=== PATIENT | female | born 1985 | race Caucasian/White ===

== ENCOUNTER 2017-09-07 11:56 | Emergency (ER) | payer OTHER ==
[~2017-09-07 11:56] MED LIST: PREN1CAP7 PO
--- NOTE | 2017-09-07 12:34 | PD ---
HPI Chief Complaint Contractions Date Seen: September 07, 2017 Travel History International Travel<30 Days: No Contact w/Intl Traveler<30Days: No Known Affected Area: No History of Present Illness HPI The patient is a pleasant 31 year old at 35/6 weeks gestation who presents to OB triage with complaints of contractions since yesterday. She states she started to feel contractions around yesterday afternoon. 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 She denies leakage or gush of fluid. Endorses +FM. She otherwise does not report symptoms. Denies fevers, chest pain, dyspnea, abnormal vaginal discharge or bleeding. Para: 2 : 3 History Past Medical History Narrative Medical Denies Obstetric History Obstetric History Two prior vaginal deliveries Patient reports one prior vaginal delivery at 35 weeks gestation and one around 37 weeks Past Surgical History Surgical History: No Previous Surgery Family History Family History: Negative Social History Alcohol Use: No Tobacco Use: No Substance Abuse: No Allergies-Medications (Allergen,Severity, Reaction): Coded Allergies: Penicillins (Verified Allergy, Unknown, 05/24/17) Home Meds Active Scripts W/O Vit A W/ Fe Fumar (Citranatal [place]) 27-1-260 Mg Cap, 1 CAP PO DAILY for Nutritional Supplement, #30 CAP 11 Refills Prov:Francie Overton [facility] 04/19/17 W/O Vit A W/ Fe Fumar (Citranatal [place]) 27-1-260 Mg Cap Prov:Trudi Barrera CNM [facility] 04/19/17 Review of Systems Except as stated in HPI: all other systems reviewed are Neg Physical Exam Narrative GENERAL: Well-nourished, well-developed patient. SKIN: Warm and dry. HEAD: Normocephalic and atraumatic. EYES: No scleral icterus. No injection or drainage. ENT: No nasal drainage noted. Mucous membranes pink. Airway patent. NECK: Supple, trachea midline. No JVD. CARDIOVASCULAR: Regular rate and rhythm without murmurs, gallops, or rubs. RESPIRATORY: Breath sounds equal bilaterally. No accessory muscle use. ABDOMEN/GI: Abdomen soft, non-tender, bowel sounds present, no rebound, no guarding Gravid to 36 weeks size GENITOURINARY: External Genitalia: intact and normal in appearance Cervix: [-] Dilatation: 2cm Effacement: 50% Station: -3 Presentation: [-] Membranes: [intact or ruptured] Uterine Contractions: Irregular and sporadic contractions FHT's: Category: I Baseline: 150s Reactive: +accels Variability: moderate Decels: none noted EXTREMITIES: No cyanosis or edema. BACK: Nontender without obvious deformity. No CVA tenderness. NEUROLOGICAL: Awake and alert. Motor and sensory grossly within normal limits. Normal speech. Data Data Vital Signs Reviewed: Yes [facility] Medical Record Reviewed: Yes Plan 31 year old at 35/6 weeks gestation being evaluated due to contractions for the past day. 1. IUP - Category I tracing - Irregular and sporadic contractions on tocometer - Cervix: 2/50%/-3 - Labor precautions reviewed with the patient and patient instructed as to what symptoms would prompt a return visit to the ED for reevaluation - Instructed continued routine follow up with her OB provider sdw Dr. Silver and Dr. Max Diagnosis Diagnosis: Primary Impression: Pablo De Los Santos' contraction Additional Impression: 35 weeks gestation of Disposition: DISCHARGE HOME Condition: Stable Joe Tinajero MD R2 September 07, 2017 12:34
== END 2017-09-07 17:31 | disposition home or self-care (01) ==
LOC: HOBED 11:56
DX: O47.03 False labor before 37 completed weeks of gestation, third trimester (principal); Z3A.35 35 weeks gestation of pregnancy; Z88.0 Allergy status to penicillin
CPT/HCPCS: 59025

== ENCOUNTER 2017-09-26 11:38 | Inpatient (IN) | payer OTHER ==
[~2017-09-26] VITALS: Ht 165.1 cm; Wt 70.0 kg
[2017-09-26] MEDS ORDERED: LACTATED RINGER'S 1000 ML INJ 1,000 ML IV PRN (11:53)
[2017-09-26] MEDS ORDERED: LACTATED RINGER'S 1000 ML INJ 1,000 ML IV SCH (11:53)
[2017-09-26] MEDS ORDERED: SODIUM CHLORID 0.9% 500 ML INJ 500 ML IV PRN (12:00)
[2017-09-26] MEDS ORDERED: LIDOCAINE HCL 1% 50 ML VIAL INFIL PRN (12:00)
[2017-09-26] MEDS ORDERED: LIDOCAINE HCL 1% 50 ML VIAL I-DERMAL PRN (12:00)
[2017-09-26] MEDS ORDERED: MINERAL OIL 10 ML VIAL TOPICAL PRN (12:00)
[2017-09-26] MEDS ORDERED: OXYTOCIN 30 UNITS-500ML PREMIX 500 ML IV ONE (12:00)
[2017-09-26] MEDS ORDERED: CITRIC ACID-SODIUM CITRATE LIQ 30 ML UDC PO SCH (12:00)
--- NOTE | 2017-09-26 12:00 | PD ---
HPI Chief Complaint Contractions Date Seen: September 26, 2017 Travel History International Travel<30 Days: No Contact w/Intl Traveler<30Days: No Known Affected Area: No History of Present Illness HPI The patient is a 31-year-old at 38/4 weeks gestation who presents to OB triage due to painful contractions. Denies any leakage of fluid. Endorses positive movements. [facility] She reports pain due to her contractions and states she is desiring an epidural. The patient is GBS negative. Para: 2 : 3 History Past Medical History Narrative Medical Denies Obstetric History Obstetric History Two prior vaginal deliveries Patient reports one prior vaginal delivery at 35 weeks gestation and one around 37 weeks Past Surgical History Surgical History: No Previous Surgery Family History Family History: Negative Social History Alcohol Use: No Tobacco Use: No Substance Abuse: No Allergies-Medications (Allergen,Severity, Reaction): Coded Allergies: Penicillins (Verified Allergy, Unknown, 05/24/17) Home Meds Active Scripts W/O Vit A W/ Fe Fumar (Citranatal [place]) 27-1-260 Mg Cap, 1 CAP PO DAILY for Nutritional Supplement, #30 CAP 11 Refills Prov:Francie Overton [facility] 04/19/17 W/O Vit A W/ Fe Fumar (Citranatal [place]) 27-1-260 Mg Cap Prov:Trudi Barrera CNM [facility] 04/19/17 Review of Systems Except as stated in HPI: all other systems reviewed are Neg Physical Exam Narrative GENERAL: Well-nourished, well-developed patient. SKIN: Warm and dry. HEAD: Normocephalic and atraumatic. EYES: No scleral icterus. No injection or drainage. ENT: No nasal drainage noted. Mucous membranes pink. Airway patent. NECK: Supple, trachea midline. No JVD. CARDIOVASCULAR: Regular rate and rhythm without murmurs, gallops, or rubs. RESPIRATORY: Breath sounds equal bilaterally. No accessory muscle use. BREASTS: Bilateral exam showed no masses , no retractions, no nipple discharge. ABDOMEN/GI: Abdomen soft, non-tender, bowel sounds present, no rebound, no guarding Gravid to 38 weeks size GENITOURINARY: External Genitalia: intact and normal in appearance Cervix: [-] Dilatation: 8cm Effacement: 100% Station: 0 Presentation: vertex Membranes: bulging Uterine Contractions: q2-3 minutes FHT's: Category: I Baseline: 140s Reactive: +accels Variability: moderate Decels: none noted EXTREMITIES: No cyanosis or edema. BACK: Nontender without obvious deformity. No CVA tenderness. NEUROLOGICAL: Awake and alert. Motor and sensory grossly within normal limits. Normal speech. Data Data Vital Signs Reviewed: Yes Orders Orders Ob (2e) Additional Admit Info (09/26/17 11:50) Admit To Inpatient (09/26/17 ) Code Status (09/26/17 11:53) Vital Signs (Adult) .Per protocol (09/26/17 11:53) Activity Oob Ad Светлана (09/26/17 11:53) Heart (09/26/17 11:53) Amnioinfusion (09/26/17 11:53) Urinary Catheter Management .ONCE (09/26/17 11:53) Lactated Ringer's 1000 Ml Inj (Lr 1000 M (09/26/17 11:53) Lactated Ringer's 1000 Ml Inj (Lr 1000 M (09/26/17 11:53) Sodium Chlorid 0.9% 500 Ml Inj (Ns 500 M (09/26/17 12:00) Sodium Chlor 0.9% 1000 Ml Inj (Ns 1000 M (09/26/17 12:13) Lidocaine 1% Inj (50 Ml) (Xylocaine 1% I (09/26/17 12:00) Citric Acid-Sodium Citrate Liq (Bicitra (09/26/17 12:00) Fentanyl Inj (Fentanyl Inj) (09/26/17 12:00) Fentanyl Inj (Fentanyl Inj) (09/26/17 12:00) Complete Blood Count With Diff (09/26/17 11:53) Hold Clot (09/26/17 11:53) Abo/Rh Blood Type (09/26/17 11:53) Urinalysis - C+S If Indicated (09/26/17 11:53) Ob/Psych Drug Screen, Urine (09/26/17 11:53) Resp Oxygen Non Rebreathe Mask (09/26/17 ) ^ Epidural / Intrathecal Infus (09/26/17 11:53) Oxytocin 30 Units-500ml Premix (Pitocin (09/26/17 12:00) Lidocaine 1% Inj (50 Ml) (Xylocaine 1% I (09/26/17 12:00) Light Mineral Oil (Muri-Lube Oil) (09/26/17 12:00) Inpatient Certification (09/26/17 ) Group B Strep: Negative MDM Medical Record Reviewed: Yes Plan 31 year old at 38/4 weeks gestation being admitted to L&D in active labor. 1. IUP - Category I tracing - Cervix 8/100/0, vertex - Contractions q2-3 minutes on tocometer - GBS negative - Patient desiring epidural - Continue expectant management dw Joe López MD R2 September 26, 2017 12:00
--- NOTE | 2017-09-26 12:07 | HHI.HP ---
History & Physical H&P HPI Chief Complaint Contractions Date Seen: September 26, 2017 Travel History International Travel<30 Days: No Contact w/Intl Traveler<30Days: No Known Affected Area: No History of Present Illness HPI The patient is a 31-year-old at 38/4 weeks gestation who presents to OB triage due to painful contractions. Denies any leakage of fluid. Endorses positive movements. [facility] She reports pain due to her contractions and states she is desiring an epidural. The patient is GBS negative. Para: 2 : 3 History Past Medical History Narrative Medical Denies Obstetric History Obstetric History Two prior vaginal deliveries Patient reports one prior vaginal delivery at 35 weeks gestation and one around 37 weeks Past Surgical History Surgical History: No Previous Surgery Family History Family History: Negative Social History Alcohol Use: No Tobacco Use: No Substance Abuse: No Allergies-Medications (Allergen,Severity, Reaction): Coded Allergies: Penicillins (Verified Allergy, Unknown, 05/24/17) Home Meds Active Scripts W/O Vit A W/ Fe Fumar (Citranatal [place]) 27-1-260 Mg Cap, 1 CAP PO DAILY for Nutritional Supplement, #30 CAP 11 Refills Prov:Francie Overton [facility] 04/19/17 W/O Vit A W/ Fe Fumar (Citranatal [place]) 27-1-260 Mg Cap Prov:Trudi Barrera CNM [facility] 04/19/17 Review of Systems Except as stated in HPI: all other systems reviewed are Neg Physical Exam Narrative GENERAL: Well-nourished, well-developed patient. SKIN: Warm and dry. HEAD: Normocephalic and atraumatic. EYES: No scleral icterus. No injection or drainage. ENT: No nasal drainage noted. Mucous membranes pink. Airway patent. NECK: Supple, trachea midline. No JVD. CARDIOVASCULAR: Regular rate and rhythm without murmurs, gallops, or rubs. RESPIRATORY: Breath sounds equal bilaterally. No accessory muscle use. BREASTS: Bilateral exam showed no masses , no retractions, no nipple discharge. ABDOMEN/GI: Abdomen soft, non-tender, bowel sounds present, no rebound, no guarding Gravid to 38 weeks size GENITOURINARY: External Genitalia: intact and normal in appearance Cervix: [-] Dilatation: 8cm Effacement: 100% Station: 0 Presentation: vertex Membranes: bulging Uterine Contractions: q2-3 minutes FHT's: Category: I Baseline: 140s Reactive: +accels Variability: moderate Decels: none noted EXTREMITIES: No cyanosis or edema. BACK: Nontender without obvious deformity. No CVA tenderness. NEUROLOGICAL: Awake and alert. Motor and sensory grossly within normal limits. Normal speech. Data Data Vital Signs Reviewed: Yes Orders Orders Ob (2e) Additional Admit Info (09/26/17 11:50) Admit To Inpatient (09/26/17 ) Code Status (09/26/17 11:53) Vital Signs (Adult) .Per protocol (09/26/17 11:53) Activity Oob Ad Светлана (09/26/17 11:53) Heart (09/26/17 11:53) Amnioinfusion (09/26/17 11:53) Urinary Catheter Management .ONCE (09/26/17 11:53) Lactated Ringer's 1000 Ml Inj (Lr 1000 M (09/26/17 11:53) Lactated Ringer's 1000 Ml Inj (Lr 1000 M (09/26/17 11:53) Sodium Chlorid 0.9% 500 Ml Inj (Ns 500 M (09/26/17 12:00) Sodium Chlor 0.9% 1000 Ml Inj (Ns 1000 M (09/26/17 12:13) Lidocaine 1% Inj (50 Ml) (Xylocaine 1% I (09/26/17 12:00) Citric Acid-Sodium Citrate Liq (Bicitra (09/26/17 12:00) Fentanyl Inj (Fentanyl Inj) (09/26/17 12:00) Fentanyl Inj (Fentanyl Inj) (09/26/17 12:00) Complete Blood Count With Diff (09/26/17 11:53) Hold Clot (09/26/17 11:53) Abo/Rh Blood Type (09/26/17 11:53) Urinalysis - C+S If Indicated (09/26/17 11:53) Ob/Psych Drug Screen, Urine (09/26/17 11:53) Resp Oxygen Non Rebreathe Mask (09/26/17 ) ^ Epidural / Intrathecal Infus (09/26/17 11:53) Oxytocin 30 Units-500ml Premix (Pitocin (09/26/17 12:00) Lidocaine 1% Inj (50 Ml) (Xylocaine 1% I (09/26/17 12:00) Light Mineral Oil (Muri-Lube Oil) (09/26/17 12:00) Inpatient Certification (09/26/17 ) Group B Strep: Negative MDM Medical Record Reviewed: Yes Plan 31 year old at 38/4 weeks gestation being admitted to L&D in active labor. 1. IUP - Category I tracing - Cervix 8/100/0, vertex - Contractions q2-3 minutes on tocometer - GBS negative - Patient desiring epidural - Continue expectant management dw Joe López MD R2 September 26, 2017 12:07
[2017-09-26] MEDS ORDERED: SODIUM CHLOR 0.9% 1000 ML INJ 1,000 ML IV PRN (12:13)
[2017-09-26 12:17] LABS: AUTOMATED NEUTROPHIL # 8.6 TH/MM3 (1.8-7.7); BASOPHIL # 0.1 TH/MM3 (0-0.2); BASOPHIL % 0.6 % (0.0-2.0); EOSINOPHIL # 0.1 TH/MM3 (0-0.4); HEMATOCRIT 33.8 % (35.0-46.0); HEMOGLOBIN 11.5 GM/DL (11.6-15.3); LYMPH % 17.2 % (9.0-44.0); LYMPHOCYTE # 1.9 TH/MM3 (1.0-4.8); MEAN CORPUSCULAR HEMOGLOBIN 30.8 PG (27.0-34.0); MEAN CORPUSCULAR HGB CONC 33.9 % (32.0-36.0); MEAN PLATELET VOLUME 8.7 FL (7.0-11.0); MONOCYTE # 0.4 TH/MM3 (0-0.9); NEUT % 77.2 % (16.0-70.0); PLATELET COUNT 267 TH/MM3 (150-450); RED BLOOD COUNT 3.72 MIL/MM3 (4.00-5.30); RED CELL DISTRIBUTION WIDTH 13.1 % (11.6-17.2); WHITE BLOOD COUNT 11.2 TH/MM3 (4.0-11.0)
[2017-09-26] MEDS ORDERED: ACETAMINOPHEN 325 MG TAB PO PRN (13:30)
[2017-09-26] MEDS ORDERED: DOCUSATE SODIUM 50 MG/SENNA 8.6 MG TAB PO PRN (13:30)
[2017-09-26] MEDS ORDERED: ALUMINUM/MAGNESIUM/SIMETH 30 ML CUP PO PRN (13:30)
[2017-09-26] MEDS ORDERED: OXYTOCIN 30 UNITS-500ML PREMIX 500 ML IV SCH (13:30)
[2017-09-26] MEDS ORDERED: oxyCODONE/ACETAMINOPHEN 5 MG/325 MG TAB PO PRN ×2 (13:30)
[2017-09-26] MEDS ORDERED: ONDANSETRON ODT 4 MG TAB PO PRN (13:30)
[2017-09-26] MEDS ORDERED: SODIUM CHLORIDE 0.9% FLUSH 10 ML FLUSH IV FLUSH PRN (13:30)
[2017-09-26] MEDS ORDERED: BENZOCAINE 20% TOPICAL SPRAY 60 ML CAN TOPICAL PRN (13:30)
--- NOTE | 2017-09-26 13:38 | PD.OB.DELI ---
Artificial rupture of membrane: No Anesthesia: None Episiotomy: None Vaginal Delivery: Normal Presentation: Occiput anterior, Vertex Nuchal Cord: None Delayed cord clamping (45 sec): Yes Delivery date: September 26, 2017 Delivery time: 13:05 One Minute : 8 Five Minute : 8 Weight: 3185 grams Placenta: Spontaneous delivery, Intact, 3 vessel cord Laceration: No lacerations Estimated blood loss: < 250 cc Additional Information 31 year old now now delivered via over an intact perineum. Apgars 8/8 at 1/5 minutes respectively. Placenta delivered spontaneously, intact. EBL < 250 cc. Joe Tinajero MD R2 September 26, 2017 13:38
[2017-09-26] MEDS: WITCH HAZEL 50%/GLYCERIN 12.5% 40 PAD JAR TOPICAL PRN (15:23)
[2017-09-26] MEDS: IBUPROFEN 800 MG TAB PO PRN ×2 (15:23→23:33)
[2017-09-26 15:25] LABS: BACTERIA, URINE FEW /hpf; BILIRUBIN, URINE NEG (NEG); BLOOD, URINE LARGE (NEG); GLUCOSE,URINE NEG (NEG); KETONE, URINE NEG (NEG); NITRITE,URINE NEG (NEG); PH, URINE 7.5 (5.0-8.5); URINE LEUKOCYTE ESTERASE TRACE (NEG)
[2017-09-26 15:33] LABS: URINE COLOR RED (YELLW/STRAW)
[2017-09-26] MEDS ORDERED: DIPHTH/TETANUS/ACEL PERTUSSIS (BOOSTER) 0.5 ML VIAL/PFS IM ONE (16:00)
[2017-09-26] MEDS ORDERED: MEASLES, MUMPS, RUBELLA VACCINE 0.5 ML VIAL SQ ONE (16:00)
[2017-09-26 20:42] VITALS: BP 117/69; PULSE 70; RESP 17; TEMP 98.7
[2017-09-26] MEDS ORDERED: SODIUM CHLORIDE 0.9% FLUSH 10 ML FLUSH IV FLUSH SCH (21:00)
[2017-09-26] MEDS ORDERED: ZOLPIDEM TARTRATE 5 MG TAB PO PRN (21:00)
--- NOTE | 2017-09-27 08:26 | HHI.OB ---
Subjective Post Day: 1 Remarks Patient seen and examined this morning. AFVSS overnight. day #1. Minimal pain. Decreased lochia. Denies dysuria. No breast tenderness. She is feeding the baby via breast. Appetite good. No nausea or vomiting. positive flatus. Patient has had 1 bowel movement. Ambulating well. Denies calf pain, shortness of breath, or cough. She otherwise has no other complaints or concerns this morning. Objective Vitals/I&O Vital Signs Date Time Temp Pulse Resp B/P (MAP) Pulse Ox O2 Delivery O2 Flow Rate FiO2 09/26/17 20:42 98.7 70 17 117/69 (85) Objective Remarks GENERAL: Well-nourished, well-developed patient. CARDIOVASCULAR: Regular rate and rhythm without murmurs, gallops, or rubs. RESPIRATORY: Breath sounds equal bilaterally. No accessory muscle use. ABDOMEN/GI: Abdomen soft, non-tender. Fundus: Firm, non-tender at umbilicus. GENITOURINARY: Light bleeding. EXTREMITIES: No cyanosis or edema, non-tender, without signs of DVT. Medications and IVs Current Medications Medications (Trade) Dose Ordered Sig/Luis Route Start Time Stop Time Status Last Admin Lactated Ringer's 1,000 ml @ 125 mls/hr Q8H IV 09/26/17 11:53 09/26/17 12:31 Lactated Ringer's 1,000 ml @ 3,000 mls/hr Q20M PRN IV 09/26/17 11:53 09/26/17 12:32 Sodium Chloride 1,000 ml @ 100 mls/hr Q10H PRN IV 09/26/17 12:13 (Xylocaine 1% Inj (50 ml)) 0.1 ml UNSCH X1 PRN I-DERMAL 09/26/17 12:00 09/29/17 11:59 (Bicitra Liq) 30 ml [employer]IVE PO 09/26/17 12:00 09/30/17 11:59 (Xylocaine 1% Inj (50 ml)) 10 ml UNSCH X1 PRN INFIL 09/26/17 12:00 09/28/17 11:59 (Muri-Lube Oil) 10 ml UNSCH PRN TOPICAL 09/26/17 12:00 (NS Flush) 2 ml BID IV FLUSH 09/26/17 21:00 (NS Flush) 2 ml UNSCH PRN IV FLUSH 09/26/17 13:30 (Tylenol) 650 mg Q4H PRN PO 09/26/17 13:30 (Motrin) 800 mg Q8H PRN PO 09/26/17 13:30 09/26/17 23:33 (Percocet 5-325 Mg) 1 tab Q4H PRN PO 09/26/17 13:30 (Percocet 5-325 Mg) 2 tab Q4H PRN PO 09/26/17 13:30 (Americaine 20% Top Spr) 1 spray Q4H PRN TOPICAL 09/26/17 13:30 09/26/17 15:24 (Tucks Pads) 1 applic QID PRN TOPICAL 09/26/17 13:30 09/26/17 15:23 (Terri-Colace) 2 tab Q12H PRN PO 09/26/17 13:30 (Ambien) 5 mg HS PRN PO 09/26/17 21:00 (Mag-Al Plus Susp Liq) 15 ml Q8H PRN PO 09/26/17 13:30 (Zofran Odt) 4 mg Q6H PRN PO 09/26/17 13:30 Assessment/Plan Problem List: (1) 38 weeks gestation of ICD Codes: Z3A.38 - 38 weeks gestation of Plan: 31 year old PPD#1. 1. Care - AFVSS - Encouraged OOB, as tolerated - Motrin prn pain - Advised pelvic rest x 6 weeks - Breast feeding - Contraception: Patient has will be getting a vasectomy - Will f/u with OB provider in 6 weeks DW Lyle More MD, R1 September 27, 2017 08:26
[2017-09-27] MEDS ORDERED: IBUP1TAB7 PO (08:34)
--- NOTE | 2017-09-27 15:25 | HHI.DCPOC ---
Discharge Care Plan Diagnosis: (1) 38 weeks gestation of Goals to Promote Your Health * To prevent worsening of your condition and complications * To maintain your health at the optimal level Directions to Meet Your Goals Take your medications as prescribed Follow your dietary instruction Follow activity as directed Keep your appointments as scheduled Take your immunizations and boosters as scheduled If your symptoms worsen call your PCP, if no PCP go to Urgent Care Center or Emergency Room Smoking is Dangerous to Your Health. Avoid second hand smoke Call the 24-hour hour crisis hotline for domestic abuse at Lyle King MD, R1 September 27, 2017 15:25
[2017-09-27] MEDS: WITCH HAZEL 50%/GLYCERIN 12.5% 40 PAD JAR TOPICAL PRN (16:19)
== END 2017-09-27 16:50 | disposition home or self-care (01) | DRG 775 ==
LOC: HOBED 11:38 → H2EB 11:55 → H1EA 14:22
PROVIDERS: ADMIT Obstetrics & Gynecology; ATTEND Obstetrics & Gynecology
PROC: 10E0XZZ Delivery of Products of Conception, External Approach (ICD-10-PCS; principal; 2017-09-26)
DX: O80 Encounter for full-term uncomplicated delivery (principal); Z37.0 Single live birth; Z3A.38 38 weeks gestation of pregnancy
CPT/HCPCS: 59025; 80307; 81001; 85025; 86900; 86901; 87086; 90715; G0481; J2590; J3010; J7120